=== PATIENT | female | born 1995 | race American Indian/Alaskan Native ===

== ENCOUNTER 2021-08-20 10:48 | Emergency (ER) | payer SELFPAY ==
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
[2021-08-20 11:46] VITALS: BP 95/39
== END 2021-08-20 12:09 | disposition home or self-care (01) ==
LOC: ED 10:48
DX: F41.9 Anxiety disorder, unspecified (principal)
CPT/HCPCS: 99282

== ENCOUNTER 2022-07-21 16:27 | Emergency (ER) | payer OTHER ==
[2022-07-21] MEDS ORDERED: oxyCODONE /ACETAMINOPHEN 5-325MG TAB PO ONE (18:38)
[2022-07-21] MEDS ORDERED: KETOROLAC 10 MG TAB PO ONE (18:38)
[2022-07-21] MEDS ORDERED: CYCLOBENZAPRINE 10 MG TAB PO ONE (18:38)
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
[2022-07-21 19:52] VITALS: BP 112/56
== END 2022-07-21 19:52 | disposition home or self-care (01) ==
LOC: ED 16:27
DX: M54.2 Cervicalgia (principal); M54.50 Low back pain, unspecified; M79.642 Pain in left hand; M25.511 Pain in right shoulder; M79.645 Pain in left finger(s); V87.7XXA Person injured in collision between other specified motor vehicles (traffic), initial encounter; Y93.89 Activity, other specified; Y92.488 Other paved roadways as the place of occurrence of the external cause; Y99.8 Other external cause status
CPT/HCPCS: 99283